=== PATIENT | female | born 2000 | race Two or more races ===

== ENCOUNTER 2019-12-15 22:40 | Inpatient (IN) | payer OTHER ==
[2019-12-15] MEDS ORDERED: AMPICILLIN - 2 GM in SODIUM CHLORIDE 100 ML IVPB ONE (23:29)
[2019-12-15] MEDS ORDERED: ELECTROLYTE-148 SOLN 1,000 ML IV SCH (23:30)
[2019-12-15 23:46] VITALS: BMI 26.5
--- NOTE | 2019-12-15 23:46 | HP ---
Past Medical History - Primary Care Physician PCP:: Laura Victoria - Admission Chief Complaint: 19 yrs ,40,3 wks , onset of regular UC since 8.00 PM. pt was seen in L&D at 11.00 AM for NST due to postterm pregn History of Present Illness: [facility] . wt gain 35 lbs h/o chlamydia pos on 04/22/19 , treated subsequent gc/ct cultures neg on & 11/19/19 05/19/19 panel O Pos, Hbsag neg , Rubella immune, Varicella immune , , Rpr nr . petr Gl 74, qunantiferon Neg , lead neg , CF screen neg Hiv neg hgb/hct 13.0/38.3, plt 158 09/15/19 Diabetes Screening 97 11/19/19 GBS pos 12/02/19 HIV neg . 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 Weeks Gestation by Dates: 40.3 ...EDC by Dates: 12/12/19 ...EDC by Sono: 12/12/19 (40.3 weeks by sono ) Infectious Disease: Yes: STD's (chlamydia pos 04/2019 , treated). No: HIV, Tuberculosis Psych: No: Addictions, Anxiety, Bipolar, Depression, Panic, Psychosis, Schizophrenia, Other - Past Surgical History Past Surgical History: Yes: None Hx Myomectomy: No Hx Transabdominal Cerclage: No - Smoking History Have you smoked in the past 12 months: No - Alcohol/Substance Use History of Substance Use: reports: None Home Medications - Allergies Allergies/Adverse Reactions: Allergies Allergy/AdvReac Type Severity Reaction Status Date / Time No Known Allergies Allergy Verified 12/15/19 23:32 - Home Medications Home Medications: Ambulatory Orders Plus Iron Tablet 1 tab PO DAILY 12/15/19 Physical Exam - Maternity Vital Signs: Selected Entries 12/15/19 23:36 Temperature 98.4 F Pulse Rate 78 Respiratory 20 Rate Blood Pressure 124/67 Weight 150 lb Constitutional: Yes: Well Nourished, Calm, Moderate Distress Eyes: Yes: WNL HENT: Yes: WNL, Normocephalic Neck: Yes: WNL, Supple Cardiovascular: Yes: WNL, Regular Rate and Rhythm Lungs: Clear to auscultation Breast(s): Yes: WNL - Abdominal Exam/OB Fundal Height: 36 Number of Fetuses: Single Presentation: Vertex Contractions: Yes Regularity: Irregular (dysfunctional 1-3-4 min) Intensity: Moderate Monitor Mode: External Heart Rate (range): 140 Heart Rate Location: Midline Category: I Accelerations: Uniform Decelerations: None - Vaginal Exam/OB Vaginal Bleediing: No Speculum Exam: No Dilatation (cm): 5 Effacement (%): 100 Amniotic Membrane Status: Bulging Presentation: Vertex/Position (exam at 10.45 PM) Station: -3 - Physical Exam Musculoskeletal: Yes: WNL Extremities: Yes: WNL. No: Calf Tenderness Edema: LLE: 1+, RLE: 1+ Integumentary: Yes: Tattoos Deep Tendon Reflex Grade: Normal +2 ...Motor Strength: WNL Psychiatric: Yes: WNL, Alert, Oriented - Labs Lab Results: Laboratory Tests 12/15/19 12/15/19 12/15/19 23:30 23:30 23:30 WBC 12.0 H Hgb 11.6 Hct 35.1 Plt Count 182 PT with INR 10.70 INR 0.91 PTT (Actin FS) 31.1 Sodium Potassium Chloride Carbon Dioxide Anion Gap BUN Creatinine Random Glucose Calcium RPR Titer Blood Type O POSITIVE Antibody Screen Negative 12/15/19 12/15/19 23:30 23:30 WBC Hgb Hct Plt Count PT with INR INR PTT (Actin FS) Sodium 139 Potassium 3.9 Chloride 108 H Carbon Dioxide 21 Anion Gap 9 BUN 9.3 Creatinine 0.6 Random Glucose 83 Calcium 8.7 RPR Titer Nonreactive Blood Type Antibody Screen Problem List - Problems (1) Post term over 40 weeks Code(s): O48.0 - POST-TERM (2) Labor established Code(s): XWG8019 - (3) Positive GBS test Code(s): B95.1 - STREPTOCOCCUS, GROUP B, CAUSING DISEASES CLASSD ELSR Assessment/Plan 19 yrs , post term pregn 40.3 weeks , gbs pos admitted in labor Plan requests Epidural labor analgesia trial vaginal delivery . GBS prophylaxis with Iv Ampicillin
[2019-12-15 23:57] LABS: BASO % 0.1 % (0-2.0); EOS % 0.1 % (0-4.5); HEMATOCRIT 35.1 % (32.4-45.2); HEMOGLOBIN 11.6 GM/dL (10.7-15.3); LYMPH % 13.9 % (8-40); MCH 29.5 pg (25.7-33.7); MCHC 33.2 g/dl (32.0-36.0); MEAN CELL VOLUME 88.9 fl (80-96); MEAN PLT VOLUME 9.7 fl (7.5-11.1); MONO % 7.9 % (3.8-10.2); PLATELET COUNT 182 K/MM3 (134-434); RBC 3.95 M/mm3 (3.60-5.2); RDW 14.3 % (11.6-15.6)
[2019-12-15] MEDS ORDERED: FENTANYL/BUPIVACAINE/NS/PF - PCEA - 50 ML DISP.SYRIN EP ONE (23:58)
[2019-12-16] MEDS ORDERED: NALOXONE HCL 0.4 MG/ML VIAL IVPUSH PRN (00:04)
[2019-12-16] MEDS ORDERED: AMPICILLIN SODIUM 2 GM VIAL ONE (00:05)
[2019-12-16] MEDS ORDERED: LIDO 2%/EPI 1:200000 PRESRVFRE (20 ML SDVIAL) ONE (00:07)
[2019-12-16 00:09] LABS: INR 0.91 (0.83-1.09); PROTHROMBIN TIME (PATIENT) 10.7 SEC (9.7-13.0)
[2019-12-16 00:12] LABS: ACTIVATED PTT 31.1 SECONDS (25.2-36.5)
[2019-12-16] MEDS ORDERED: FENTANYL/BUPIVACAINE/NS/PF - PCEA - 50 ML DISP.SYRIN EP SCH (00:15)
[2019-12-16 00:22] LABS: BLOOD UREA NITROGEN 9.3 mg/dL (7-18); CALCIUM 8.7 mg/dL (8.5-10.1); CREATININE 0.6 mg/dL (0.55-1.3); POTASSIUM 3.9 mmol/L (3.5-5.1)
[2019-12-16] MEDS ORDERED: AMPICILLIN SODIUM 1 GM VIAL ONE ×2 (03:12→08:16)
[2019-12-16] MEDS ORDERED: OXYTOCIN 30 UNITS in 0.9% NS 30 UNIT/500 ML INFUS.BAG IVPB SCH (03:15)
--- NOTE | 2019-12-16 03:15 | PN ---
Progress Note, Labor Vaginal Exam #1 Labor Exam Date: 12/16/19 Labor Exam Time: 03:05 Heart Rate (range): 140 Dilatation: 6 Effacement (%): 100 Amniotic Membrane Status: Intact Presentation: Vertex/Position Station: -1 Remarks: fhr cat-1 UC dysfunctional 2--3- 5 mild pt received one price of Iv ampicillin Plan Pitocin augmentation to improve uterine contractility Epidural received at 12.20 AM Selected Entries 12/16/19 12/16/19 01:30 02:00 Temperature 98.0 F Pulse Rate 91 H Respiratory 18 Rate Blood Pressure 121/66 Vaginal Exam #2 Labor Exam Date: 12/16/19 Labor Exam Time: 07:10 Heart Rate (range): 145 Dilatation: 8 Effacement (%): 100 Amniotic Membrane Status: Ruptured (AROM clear) Presentation: Vertex/Position Station: 0 Remarks: fhr cat-1 uc dysfunctional q 1-2-3 min pitocin 2ml/hr Selected Entries 12/16/19 12/16/19 12/16/19 06:00 06:15 06:30 Temperature 98.4 F Pulse Rate 87 89 Respiratory 18 18 Rate Blood Pressure 108/70 118/73 12/16/19 06:45 Temperature Pulse Rate 86 Respiratory 18 Rate Blood Pressure 114/64 Vaginal Exam #3 Labor Exam Date: 12/16/19 Labor Exam Time: 09:10 Heart Rate (range): 135 Dilatation: 10 Effacement (%): 100 Amniotic Membrane Status: Ruptured Presentation: Vertex/Position Station: +3 Remarks: fhr cat-1 uc q1-2 min pt pushing Selected Entries 12/16/19 12/16/19 08:45 08:49 Temperature 98.5 F Pulse Rate 70 Blood Pressure 119/77
[2019-12-16] MEDS: AMPICILLIN - 1 GM in SODIUM CHLORIDE 100 ML IVPB SCH ×4 (04:00→16:40)
[2019-12-16] MEDS ORDERED: FENTANYL/BUPIVACAINE/NS/PF - PCEA - 50 ML DISP.SYRIN EP ONE (05:09)
[2019-12-16] MEDS ORDERED: OXYTOCIN 20 UNITS in 0.9% NS 20 UNIT/1,000 ML INFUS.BAG IV ONE (09:09)
[2019-12-16] MEDS ORDERED: LIDOCAINE HCL 1% PRESERVATIVE FREE - 30ML VIAL ONE (09:10)
[2019-12-16] MEDS: OXYTOCIN 20 UNITS in 0.9% NS 20 UNIT/1,000 ML INFUS.BAG IV SCH (09:20)
--- NOTE | 2019-12-16 09:59 | PN ---
Delivery - Delivery Vaginal Delivery: No Problems, Spontaneous ( at , vx,guillermo position , shoulder delievered without difficulty .placenta & membranes delievered completely. median epi small was given which was sutured in layers with chr catgut#2/0 . laceration on left inner labium sutured after placing strait cath in urethra . pr exam mucosa & sphincter intact . cord blood was collected , trivascular cord) Type of Anesthesia: Local, Epidural Episiotomy/Laceration: Midline EBL (cc): 250 Delivery, Single - Stages of Labor Date 1st Stage Initiatied: 12/15/19 Time 1st Stage Initiated: 20:00 Date 2nd Stage Initiated: 12/16/19 Time 2nd Stage Initiated: 09:10 Date of Delivery: 12/16/19 Time of Delivery: 09:17 Date Placenta Delivered: 12/16/19 Time Placenta Delivered: 09:20 Placenta: Yes: Spontaneous, Uterine Exploration - Condition of Infant Gender: Male Weight: 7 lb 2 oz Position: Left, OA Total Hours ROM (Hrs/Mins): 2hr 10 min - 1 Minute Total Score: 9 5 Minutes Total Score: 9 - Feeding Plan Initial Plan: Elected not to breastfeed exclusively throughout hospitalization Remarks - Remarks Remarks: 19 yrs 40.3 weeks admitted in labor . PNC at [facility] GBS pos ,received 3doses of Iv Ampicillin Intrapartum course uneventful
[2019-12-16] MEDS ORDERED: METHYLERGONOVINE MALEATE 0.2 MG/1 ML AMP IM PRN (10:03)
[2019-12-16] MEDS ORDERED: oxyCODONE HCL 5 MG TABLET PO PRN (10:03)
[2019-12-16] MEDS ORDERED: BENZOCAINE 20% 57 GM BOTTLE TP PRN (10:03)
[2019-12-16] MEDS ORDERED: BISACODYL 10 MG SUPP.RECT RC PRN (10:03)
[2019-12-16] MEDS ORDERED: BENZOCAINE 28 GM HEMORRHOIDAL OINTMENT TP PRN (10:03)
[2019-12-16] MEDS ORDERED: WITCH HAZEL 50% (TUCKS) 40 PAD/JAR PAD TP PRN (10:03)
[2019-12-16] MEDS: FERROUS SO4 325 MG TABLET (FP) PO SCH (17:07)
[2019-12-16] MEDS: ACETAMINOPHEN 325 MG TABLET (FP) PO PRN (21:07)
[2019-12-16] MEDS: IBUPROFEN 600 MG TABLET (FP) PO PRN (21:08)
[2019-12-17 07:56] LABS: BASO % 0.1 % (0-2.0); EOS % 0.2 % (0-4.5); HEMATOCRIT 29.3 % (32.4-45.2); LYMPH % 15.3 % (8-40); MCH 30.3 pg (25.7-33.7); MCHC 34.2 g/dl (32.0-36.0); MEAN CELL VOLUME 88.6 fl (80-96); MEAN PLT VOLUME 9.2 fl (7.5-11.1); MONO % 4.8 % (3.8-10.2); NEUT % 79.6 % (42.8-82.8); PLATELET COUNT 163 K/MM3 (134-434); RBC 3.31 M/mm3 (3.60-5.2); RDW 14.8 % (11.6-15.6); WHITE BLOOD COUNT 14.1 K/mm3 (4.0-10.0)
--- NOTE | 2019-12-17 08:19 | PN ---
Post Progress Note - Subjective Subjective: 19 yo Para 1 status post vaginal delivery, seen and evaluated. Doing well. Post Day: 1 Type of Delivery: Vital Signs: Vital Signs Temperature 97.8 F 12/17/19 06:00 Pulse Rate 76 12/17/19 06:00 Respiratory Rate 18 12/17/19 06:00 Blood Pressure 118/62 12/17/19 06:00 O2 Sat by Pulse Oximetry (%) 99 12/16/19 21:00 Breast Exam: Yes: Soft Uterus: Yes: Fundus @ umbilicus Abdomen/GI: Yes: Abdomen soft, Tolerating PO Lochia: Yes: Rubra Lochia, amount: Moderate Extremities: Yes: Calves non-tender Perineum: Yes: Intact Activity: Ambulating - Labs Labs: CBC WBC 14.1 K/mm3 (4.0-10.0) H 12/17/19 07:20 RBC 3.31 M/mm3 (3.60-5.2) L 12/17/19 07:20 Hgb 10.0 GM/dL (10.7-15.3) L 12/17/19 07:20 Hct 29.3 % (32.4-45.2) L D 12/17/19 07:20 MCV 88.6 fl (80-96) 12/17/19 07:20 MCH 30.3 pg (25.7-33.7) 12/17/19 07:20 MCHC 34.2 g/dl (32.0-36.0) 12/17/19 07:20 RDW 14.8 % (11.6-15.6) 12/17/19 07:20 Plt Count 163 K/MM3 (134-434) 12/17/19 07:20 MPV 9.2 fl (7.5-11.1) 12/17/19 07:20 Absolute Neuts (auto) 11.2 K/mm3 (1.5-8.0) H 12/17/19 07:20 Neutrophils % 79.6 % (42.8-82.8) 12/17/19 07:20 Lymphocytes % 15.3 % (8-40) 12/17/19 07:20 Monocytes % 4.8 % (3.8-10.2) 12/17/19 07:20 Eosinophils % 0.2 % (0-4.5) D 12/17/19 07:20 Basophils % 0.1 % (0-2.0) 12/17/19 07:20 Nucleated RBC % 0 % (0-0) 12/17/19 07:20 Assessment/Plan Status post vaginal delivery Stable Continue routine care
[2019-12-17] MEDS: PRENATAL VITAMINS W/ FOLIC ACID TABLET (FP) PO SCH (09:16)
[2019-12-17] MEDS: FERROUS SO4 325 MG TABLET (FP) PO SCH ×2 (09:16→17:40)
[2019-12-17] MEDS: ACETAMINOPHEN 325 MG TABLET (FP) PO PRN ×2 (09:18→21:34)
[2019-12-17] MEDS: IBUPROFEN 600 MG TABLET (FP) PO PRN ×2 (09:19→21:34)
[2019-12-17] MEDS ORDERED: SENNOSIDES/DOCUSATE COMBO (SENNA PLUS) TABLET (UD) PO PRN (22:00)
[2019-12-18] MEDS: OXYTOCIN 20 UNITS in 0.9% NS 20 UNIT/1,000 ML INFUS.BAG IV SCH (00:51)
--- NOTE | 2019-12-18 07:47 | DS ---
Physical Exam-LMFT Vital Signs: Vital Signs Temperature 98.2 F 12/17/19 22:00 Pulse Rate 71 12/17/19 22:00 Respiratory Rate 18 12/17/19 22:00 Blood Pressure 113/65 12/17/19 22:00 O2 Sat by Pulse Oximetry (%) 99 12/16/19 21:00 Constitutional: Yes: Well Nourished, No Distress, Calm Eyes: Yes: WNL, Conjunctiva Clear, EOM Intact HENT: Yes: WNL, Atraumatic, Normocephalic Neck: Yes: WNL, Supple, Trachea Midline Cardiovascular: Yes: WNL, Regular Rate and Rhythm Respiratory: Yes: WNL, Regular, CTA Bilaterally Gastrointestinal: Yes: WNL ...Rectal Exam: Yes: WNL Renal/: Yes: WNL ....Post : Yes: Uterus firm, Uterus non-tender, Slight lochia rubra Breast(s): Yes: WNL Musculoskeletal: Yes: WNL Extremities: Yes: WNL Edema: No Integumentary: Yes: WNL Neurological: Yes: WNL, Alert, Oriented ...Motor Strength: WNL Psychiatric: Yes: WNL, Alert, Oriented Labs: CBC, BMP 12/17/19 07:20 12/15/19 23:30 Delivery - Delivery Vaginal Delivery: No Problems, Spontaneous ( at , vx,guillermo position , shoulder delievered without difficulty .placenta & membranes delievered completely. median epi small was given which was sutured in layers with chr catgut#2/0 . laceration on left inner labium sutured after placing strait cath in urethra . pr exam mucosa & sphincter intact . 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 Gender: Male Weight: 7 lb 2 oz Position: Left, OA Total Hours ROM (Hrs/Mins): 2hr 10 min - 1 Minute Total Score: 9 5 Minutes Total Score: 9 - Feeding Plan Initial Plan: Elected not to breastfeed exclusively throughout hospitalization Discharge Summary Problems reviewed: Yes Reason For Visit: LABOR Current Active Problems Labor established (Acute) Normal spontaneous vaginal delivery (Acute) Positive GBS test (Acute) Post term over 40 weeks (Acute) Procedures: Principal: Other Procedures: none Hospital Course: no complication Condition: Good - Instructions Diet, Activity, Other Instructions: Post Instructions DIET: Continue good diet high in protein, calcium, and iron rich foods. Drink at least eight (8) glasses of water daily in addition to other fluids. ct Regular diet MEDICATIONS: Continue vitamins and iron as previously directed. Motrin and Tylenol may be taken for minor discomfort. ACTIVITY: Mild to moderate exercise may be started in two (2) weeks. Take frequent rest periods. Resume normal activity after six (6) week check up. WOUND CARE OF OPERATIVE SITE: Continue use of perineal bottle until vaginal discharge stops. Keep area clean. Shower daily. Keep abdominal wound dry. Report any drainage or redness to physician. Tub baths, tampons and douches are not permitted for [address] Breast feeding & or Bottle feedining BREAST CARE: (For those that are not ): If engorgement occurs: Wear tight fitting bra. Take Tylenol or Motrin for pain. Apply cold packs (ice in bags to each breast ) FAMILY PLANNING: There are many control alternatives to pursue and they should be discussed at your first office visit. You may resume sexual activity after your six (6) week check up. (Remember, is not a contraceptive) NEXT PHYSICIAN APPOINTMENT: Be certain to call for a four (4 ) week appointment, unless otherwise directed. [facility] Clinic or got to Emergency Dept if you have any of the following: Heavy vaginal bleeding Painful urination Leg pain Unusual odor noted to vaginal bleeding High fever Red streaking noted on breast Referrals: Laura Victoria MD [Staff Physician] - Disposition: HOME - Home Medications Comprehensive Discharge Medication List: Ambulatory Orders Plus Iron Tablet 1 tab PO DAILY 12/15/19 Acetaminophen [Tylenol .Regular Strength -] 650 mg PO Q3H PRN tablet 12/17/19 Benzocaine [Americaine 20% Louise -] 1 spray TP PRN PRN bottle 12/17/19 Ferrous Sulfate [Feosol] 325 mg PO DAILY #30 tab 12/17/19 Ibuprofen [Motrin -] 200 mg PO Q4H PRN #0 tablet 12/17/19 Vitamins (Sjr) - 1 tab PO DAILY #30 tablet 12/17/19 Witch Sonia 50% (Tucks) [Tucks Pads -] 1 pad TP PRN PRN pad 12/17/19
[2019-12-18] MEDS: FERROUS SO4 325 MG TABLET (FP) PO SCH (08:06)
[2019-12-18 08:39] VITALS: BP 102/62; PULSE 68; TEMP 98.1
[2019-12-18] MEDS: PRENATAL VITAMINS W/ FOLIC ACID TABLET (FP) PO SCH (09:06)
== END 2019-12-18 12:35 | disposition home or self-care (01) | DRG 560 ==
LOC: JLDR 22:40 → J3W 12-16 11:45
PROVIDERS: ADMIT Obstetrics & Gynecology; ATTEND Obstetrics & Gynecology
PROC: 10E0XZZ Delivery of Products of Conception, External Approach (ICD-10-PCS; principal; 2019-12-16)
PROC: 0W8NXZZ Division of Female Perineum, External Approach (ICD-10-PCS; 2019-12-16)
PROC: 0HQ9XZZ Repair Perineum Skin, External Approach (ICD-10-PCS; 2019-12-16)
DX: O48.0 Post-term pregnancy (principal); Z3A.40 40 weeks gestation of pregnancy; O70.0 First degree perineal laceration during delivery; Z37.0 Single live birth; Z22.330 Carrier of Group B streptococcus
CPT/HCPCS: 36415; 59409; 80048; 85025; 85610; 85730; 86593; 86850; 86900; 86901